=== PATIENT | male | born 1990 | race Caucasian/White ===

== ENCOUNTER 2021-04-01 04:18 | Emergency (ER) | payer OTHER ==
[~2021-04-01] VITALS: Ht 175.3 cm; Wt 84.7 kg
[2021-04-01 05:34] LABS: BASO # 0.1 10^3/uL (0.0-0.2); BASO % 0.7 % (0.0-1.0); EOS # 0.2 10^3/uL (0.0-0.5); EOS % 1.9 % (0.0-3.0); HEMATOCRIT 45.2 % (42.0-52.0); HEMOGLOBIN 15.1 g/dl (13.5-17.5); LYMPH # 1.1 10^3/uL (1.5-5.0); LYMPH % 9.5 % (24.0-44.0); MEAN CORPUSCULAR HEMOGLOBIN 30.6 pg (27.0-33.0); MEAN CORPUSCULAR HGB CONC 33.4 g/dl (32.0-36.5); MEAN CORPUSCULAR VOLUME 91.5 fl (80.0-96.0); MONO # 1.4 10^3/uL (0.0-0.8); MONO % 11.7 % (2.0-8.0); NEUTROPHILS # 8.8 10^3/uL (1.5-8.5); NEUTROPHILS % 75.9 % (36.0-66.0); PLATELET COUNT, AUTOMATED 203 10^3/uL (150-450); RED BLOOD COUNT 4.94 10^6/uL (4.30-6.10); WHITE BLOOD COUNT 11.6 10^3/uL (4.0-10.0)
[2021-04-01] MEDS ORDERED: KETOROLAC 30 MG/ML 1ML VIAL IV ONE (05:55)
[2021-04-01] MEDS ORDERED: TAMSULOSIN 0.4 MG CAP PO ONE (05:55)
[2021-04-01 06:04] LABS: BILIRUBIN,DIRECT 0.2 MG/DL (0.0-0.2); BILIRUBIN,TOTAL 0.5 MG/DL (0.2-1.0); CALCIUM LEVEL 9.8 MG/DL (8.5-10.1); CREATININE FOR GFR 1.55 MG/DL (0.70-1.30); GLOMERULAR FILTRATION RATE 56.3 (>60); POTASSIUM SERUM 4.3 MEQ/L (3.5-5.1); TOTAL PROTEIN 7.4 GM/DL (6.4-8.2)
[2021-04-01] MEDS ORDERED: PEPC1TAB5 PO (06:44)
[2021-04-01] MEDS ORDERED: KETO10TAB PO (06:44)
[2021-04-01] MEDS ORDERED: FLOM0.4C39 PO (06:44)
--- NOTE | 2021-04-01 07:09 | REPVR ---
PROCEDURE INFORMATION: Exam: CT Abdomen And Pelvis Without Contrast Exam date and time: 04/01/2021 6:02 AM Age: 30 years old Clinical indication: Abdominal pain; Other: Left back/groin pain TECHNIQUE: Imaging protocol: Computed tomography of the abdomen and pelvis without contrast. Radiation optimization: All CT scans at this facility use at least one of these dose optimization techniques: automated exposure control; mA and/or kV adjustment per patient size (includes targeted exams where dose is matched to clinical indication); or iterative reconstruction. COMPARISON: No relevant prior studies available. FINDINGS: Lungs: The visualized portions of the lung bases are normal. Liver: The unenhanced liver appears unremarkable. Gallbladder and bile ducts: The gallbladder is normal with no stones or biliary ductal dilation. Pancreas: The pancreas appears unremarkable. No pancreatic ductal dilation identified. Spleen: The unenhanced spleen appears unremarkable. Adrenal glands: The adrenal glands are normal. Kidneys and ureters: The unenhanced kidneys appear unremarkable. There are no ureteral stones or hydronephrosis. Stomach and bowel: The small bowel appears unremarkable. There is no dilation or thickening of the colon. Appendix: The appendix is normal in size. Intraperitoneal space: There is no evidence of free intraperitoneal or pelvic fluid. There is no free intraperitoneal air. Vasculature: No aortic aneurysm. Lymph nodes: No lymphadenopathy is seen. Urinary bladder: The bladder wall appears mildly thickened but may be accentuated by under distention. No bladder stones identified. Reproductive: The prostate gland appears normal. Bones/joints: No suspicious osseous lesions. No acute fractures. Soft tissues: The soft tissues appear unremarkable. IMPRESSION: 1. No nephrolithiasis, ureterolithiasis, or hydronephrosis. 2. Slight thickening of the bladder wall which may be due to under distention. Correlate clinically for any signs of cystitis. Electronically signed by: Rachel Murphy On 04/01/2021 07:09:25 AM
--- NOTE | 2021-04-01 08:57 | REP ---
INDICATION: left sided pain. Go to COMPARISON: None TECHNIQUE: Bilateral testicular ultrasound FINDINGS: The right testicle measures 5 x 2.3 x 3.1 cm and left testicle measures 4.5 x 2.1 x 3.2 cm. The testicular vascular pattern is normal bilaterally. There are no solid masses. There is no hydrocele on either side. The right testicular RI is 0.63 in the left is 0.58. There are 2-3 tiny echogenic foci in the left testicle. IMPRESSION: Unremarkable testicular ultrasound examination as described above. <Electronically signed by Cody Marcano > 04/01/21 [id number]
[2021-04-01 09:15] VITALS: BP 139/79
== END 2021-04-01 09:15 | disposition home or self-care (01) ==
LOC: M ED 04:18
DX: R10.9 Unspecified abdominal pain (principal); Z87.442 Personal history of urinary calculi
CPT/HCPCS: 74176; 76870; 80048; 80076; 81001; 83690; 85025; 93976; 96374; 99284; J1885

== ENCOUNTER 2022-06-02 15:17 | Emergency (ER) | payer OTHER ==
[~2022-06-02] VITALS: Ht 175.3 cm; Wt 84.4 kg
[~2022-06-02 15:17] MED LIST: FLOM0.4C39 PO; KETO10TAB PO; PEPC1TAB5 PO
[2022-06-02 18:02] LABS: BASO % 0.3 % (0.0-1.0); HEMATOCRIT 44.5 % (42.0-52.0); LYMPH # 1.3 10^3/uL (1.5-5.0); LYMPH % 9.3 % (24.0-44.0); MEAN CORPUSCULAR HGB CONC 33.7 g/dl (32.0-36.5); MEAN CORPUSCULAR VOLUME 91.9 fl (80.0-96.0); MONO # 0.5 10^3/uL (0.0-0.8); MONO % 3.2 % (2.0-8.0); NEUTROPHILS # 12.1 10^3/uL (1.5-8.5); NEUTROPHILS % 86.8 % (36.0-66.0); PLATELET COUNT, AUTOMATED 235 10^3/uL (150-450); RED BLOOD COUNT 4.84 10^6/uL (4.30-6.10); WHITE BLOOD COUNT 13.9 10^3/uL (4.0-10.0)
[2022-06-02] MEDS ORDERED: KETOROLAC 30 MG/ML 1ML VIAL IV ONE (18:20)
[2022-06-02] MEDS ORDERED: ONDANSETRON 4MG 2ML VIAL IV ONE (18:20)
[2022-06-02] MEDS ORDERED: NS 1,000 ML IV ONE (18:20)
[2022-06-02 18:33] LABS: ALBUMIN 4.3 GM/DL (3.2-5.2); BILIRUBIN,DIRECT 0.1 MG/DL (0.0-0.2); BILIRUBIN,TOTAL 0.5 MG/DL (0.2-1.0); MAGNESIUM LEVEL 2.1 MG/DL (1.8-2.4); TOTAL PROTEIN 7.9 GM/DL (6.4-8.2)
[2022-06-02 19:49] VITALS: BP 113/58
[2022-06-02] MEDS ORDERED: diphenhydrAMINE 50MG CAP PO ONE (19:50)
== END 2022-06-02 19:53 | disposition home or self-care (01) ==
LOC: M ED 15:17
DX: G43.909 Migraine, unspecified, not intractable, without status migrainosus (principal)
CPT/HCPCS: 80047; 80076; 83690; 83735; 85025; 87428; 96361; 96374; 96375; 99284; J1885; J2405